=== PATIENT | male | born 1985 | race Caucasian/White ===

== ENCOUNTER 2021-06-27 23:34 | Emergency (ER) | payer SELFPAY ==
[2021-06-27 23:40] VITALS: BP 125/79; PULSE 79; RESP 18; TEMP 36.7; O2SAT 98; BMI 26.6
--- NOTE | 2021-06-27 23:46 | ED_ITS ---
HPI - Psych General: Chief Complaint: Psychiatric Symptoms Stated Complaint: HALLUCINATIONS Time Seen by Provider: 06/27/21 23:39 Source: patient and EMS Mode of arrival: EMS Limitations: no limitations History of Present Illness: HPI Narrative: 36-year-old male who had been found trespassing and was arrested by police. Please states that he is acting abnormal and called EMS. Patient is here by EMS. He denies any suicidal or homicidal ideology. He does admit to smoking marijuana tonight. Patient is able answer all my questions appropriately. Per EMS he has not made any statements of hurting himself or hurting anyone else either. He has no other medical complaints. Review of Systems Const: Denies: fever(s), chills, body aches or change in appetite Eyes: Denies: blurry vision or eye discomfort ENMT: Denies: throat pain or dental pain Card: Denies: chest pain Resp: Denies: dyspnea GI: Denies: abdominal pain, nausea, vomiting or diarrhea : Denies: dysuria Musc: Denies: neck pain or back pain Skin/Breast: Denies: rash Neuro: Denies: headache(s) Psych: Reports: anxiety Saman/Lymph: Denies: easy bruising All/Imm: Denies: urticaria Physical Exam Const: COMMON NORMALS: no acute distress, patient oriented x3 and healthy appearing HENMT: COMMON NORMALS: normocephalic and atraumatic HEAD & SCALP: normocephalic and atraumatic Eye: COMMON NORMALS: Equal, round and reactive pupils present and EOMs intact bilaterally PUPIL: Yes Equal, round and reactive pupils present Neck/C-Spine: COMMON NORMALS: full ROM and supple Chest: COMMONS NORMALS: normal inspection of the chest and normal palpation of entire chest wall Resp: COMMON NORMALS: normal respiratory effort, No retractions, No use of accessory muscles and clear to auscultation bilaterally AUSCULTATION: clear to auscultation bilaterally Cardio: COMMON NORMALS: regular rate, regular rhythm and No murmurs present (Cardio) RATE: regular rate RHYTHM: regular rhythm GI: COMMON NORMALS: Normal to inspection, nondistended, normoactive bowel sounds present, Soft to palpation, non-tender and no masses PALPATION: Yes Soft to palpation Extremity: COMMON NORMALS: normal to inspection and full ROM Neuro: COMMON NORMALS: patient oriented x3, moves all extremities and no focal motor deficits Psych: COMMON NORMALS: mental status grossly normal, Normal thought process present and cooperative ATTITUDE: Yes paranoid MOOD & AFFECT: Yes anxious THOUGHT PROCESS: Normal thought process present Skin: COMMON NORMALS: no rashes or lesions noted and no wounds GENERAL SKIN EXAM: no rashes or lesions noted Course Vital Signs: Vital signs: Vital Signs Temperature 98.1 F 06/27/21 23:40 Pulse Rate 79 06/27/21 23:40 Respiratory Rate 18 06/27/21 23:40 Blood Pressure 125/79 06/27/21 23:40 Pulse Oximetry 98 06/27/21 23:40 MDM - Psych MDM Narrative: Medical decision making narrative: Patient presents here with drug abuse and admits to marijuana abuse along with some paranoia likely from the marijuana. Patient had been arrested. Per EMS patient does not have any suicidality or homicidality. Patient is not suicidal or homicidal. Is some slight paranoia but he is not psychotic. He is of right mind and able answer all my questions appropriately. He is refusing any blood draw and would like to go home. I do not believe that he is a threat to himself or others and I cannot keep him here against his will. Lab Data: Labs: Lab Results 06/27/21 23:45 Urine Opiates Scre en Negative ng/mL ng /mL (Negative) Ur Barbiturates Sc reen Negative ng/mL ng /mL (Negative) Ur Phencyclidine S crn Negative ng/mL ng /mL (Negative) Ur Amphetamines Sc reen Negative ng/mL ng /mL (Negative) U Benzodiazepines Scrn Negative ng/mL ng /mL (Negative) Urine Cocaine Scre en Negative ng/mL ng /mL (Negative) U Marijuana (THC) Screen Positive ng/mL H ng/mL (Negative) Discharge Plan Discharge Patient Disposition: Home Clinical Impression: Anxiety, Marijuana abuse Condition: Stable Discharge Orders: Discharge ED (Routine); Ordered 06/27/21 Ordered By: Isai Bolton Discharge Diet: Advance as tolerated Discharge Activity: Resume usual activity Patient Instructions: Anxiety (ED) Coding Level of Care Code ED [employer]
--- NOTE | 2021-06-27 23:55 | PC.NURSE ---
pt states we are not putting anything into his cheondoism. pt states that his 'poppa' (GOD) told him not to let anyone put anything into his cheondoism and he hears his poppa tell him things all the time. pt did not making any statements of self harm or intentions to harm anyone else.
[2021-06-28 00:05] LABS: Amphetamines Screen Urine Negative (Negative); Barbiturates Screen Urine Negative (Negative); Benzodiazepines Screen Urine Negative (Negative); Cocaine Screen Urine Negative (Negative); Opiate Screen Urine Negative (Negative); PCP Screen Urine Negative (Negative); THC Screen Urine Positive (Negative)
== END 2021-06-28 00:02 | disposition home or self-care (01) ==
LOC: ER 06-28 05:31
PROVIDERS: Emergency Provider Emergency Medicine
DX: F41.9 Anxiety disorder, unspecified (principal); F12.10 Cannabis abuse, uncomplicated
CPT/HCPCS: 80306; 99281